=== PATIENT | male | born 1960 | race Two or more races ===

== ENCOUNTER 2022-05-22 05:31 | Emergency (ER) | payer MEDICARE, MEDICAID ==
[~2022-05-22] VITALS: Ht 177.8 cm; Wt 90.7 kg
[2022-05-22] MEDS ORDERED: IOHEXOL 300 MG/ML 100ML BOTTLE IJ ONE (06:14)
[2022-05-22 06:41] LABS: Basophils # (auto) 0.1 10 ^3/uL (0-0.2); Basophils % (auto) 0.6 % (0.0-2.0); Eosinophils # (auto) 0 10 ^3/uL (0-0.8); Eosinophils % (auto) 0.1 % (0.0-7.0); Hemoglobin 14.2 g/dL (13.5-17.5); Lymphocytes # (auto) 0.7 10 ^3/uL (0.4-5.4); Lymphocytes % (auto) 7.7 % (10.0-50.0); Mean Corpuscular Hemoglobin 29.6 pg (28.0-32.0); Mean Corpuscular Hgb Conc. 33.8 g/dL (32.0-36.0); Mean Corpuscular Volume 87.5 fL (80.0-100.0); Monocytes # (auto) 0.8 10 ^3/uL (0-1.3); Monocytes % (auto) 7.9 % (0.0-12.0); Neutrophils % (auto) 83.7 % (37.0-80.0); Nucleated Red Blood Cells % 0.1 %; Red Blood Cells 4.79 10^6/uL (4.5-5.90); Red Cell Distribution Width 13.7 % (11.8-14.3); White Blood Cell 9.6 10^3/uL (4.4-10.8)
[2022-05-22 06:51] LABS: INR 0.95 (0.9-1.15); Partial Thromboplastin Time 22.5 sec (24.6-33.4)
[2022-05-22 06:54] LABS: Albumin 3.2 g/dL (3.4-5.0); BUN/Creatinine Ratio 15.5; Magnesium 2.1 mg/dL (1.6-2.6); Potassium 4.9 mmol/L (3.5-5.1)
[2022-05-22 07:24] LABS: Bilirubin, Total 0.5 mg/dL (0.2-1.0); Total Protein 5.8 g/dL (6.4-8.2)
[2022-05-22] MEDS ORDERED: SODIUM CHLORIDE 0.9% 1,000 ML IV ONE (08:00)
[2022-05-22 12:30] VITALS: BP 109/79
[2022-05-22 13:39] LABS: Urine Specific Gravity 1.35 (1.001-1.035)
[2022-05-22 13:41] LABS: Urine Blood Negative /uL (Negative)
== END 2022-05-22 12:53 | disposition home or self-care (01) ==
LOC: ER 05:31
DX: K91.841 Postprocedural hemorrhage of a digestive system organ or structure following other procedure (principal); K62.5 Hemorrhage of anus and rectum; R94.31 Abnormal electrocardiogram [ECG] [EKG]
CPT/HCPCS: 36415; 71045; 74177; 80053; 81001; 83735; 83880; 84484; 85025; 85610; 85730; 86850; 86900; 86901; 93005; 96360; 96361; 99285; J7030; Q9967